=== PATIENT | male | born 1985 | race Caucasian/White ===

== ENCOUNTER → 2019-02-24 | Day surgery (SDC) | payer OTHER ==
[~2019-02-24] MED LIST: TRAMADOL 50 MG50 MG PO; ZOFRAN ODT4 MG PO
--- NOTE | 2019-02-26 14:07 | PATH ---
[facility] [address] [place] [address] PATHOLOGY RPT PROCEDURE Name: HERB GONSALEZ Room: [facility]#: [id number] Admission: 02/24/19 Date of : 81 Discharge: Report #: [id number] Path Case #: [id number] [facility] Accession Number: [id number] . 01 Material submitted: . PART A: shoulder - LEFT SHOULDER MASS. Modifiers: left PART B: jaw - SKIN LESION LEFT JAW. Modifiers: left . 01 Clinical history: . Lipoma of torso, skin lesion face . 02 Diagnosis: A. Left shoulder mass: - Lipoma. . B. Skin lesion left jaw: - Intradermal nevus with congenital features. (RINA:pit; 02/26/2019) QTP 02/26/2019 1050 Local . 02 Electronically signed: . Apollo Man MD, Pathologist NPI- [id number] . 01 Gross description: . A. The specimen is received in formalin, labeled "Herb Gonsalez, left shoulder mass" and consists of a partially encapsulated segment of yellow orange lobulated tissue measuring 4.9 x 4.8 x 1.7 cm. Sectioning reveals homogeneous yellow cut surfaces. El Teacher sections are submitted in A1-A2. . B. The specimen is received in formalin, labeled "Herb Gonsalez, skin lesion left jaw" and consists of an ovoid segment of skin measuring 0.7 x 0.5 x 0.4 cm which displays a slightly raised pink-seo lesion measuring 0.3 x 0.3 cm. It is inked, trisected, and entirely submitted in B1. (SDY; 02/25/2019) SYU/SYU 02/25/2019 1117 Local . 02 Pathologist provided ICD-10: D17.79, D22.39 . 02 CPT . 329518, 394504 Specimen Comment: A courtesy copy of this report has been sent to [phone] Specimen Comment: Report sent to Performed at: [address] [facility] [address], [place] [id number] [place] [address] PATHOLOGY RPT PROCEDURE Name: HERB GONSALEZ Room: [facility]#: [id number] Admission: 02/24/19 Date of : 81 Discharge: Report #: [id number] Path Case #: [id number] MD Torsten Abbott MD Phone: [phone] Performed at: [address] [facility] [address] [place]aur [id number] MD Apollo Man MD Phone: [phone]
--- NOTE | 2019-03-02 11:24 | OP ---
[address] [address] OPERATIVE REPORT Name: SHIELAJULIO C Room: [facility]#: [id number] Admission: 02/24/19 Attend Phys: Deejay Larson DO Discharge: Date of : 81 Report #: [id number] THIS REPORT FOR: //name// CC: Deejay Larson DO [facility] physician/PCP MD PRIMARY CARE DICTATED BY: Carmencita Chan DO DATE OF SERVICE: 02/24/2019 Carmencita Chan DO dictating for Deejay Larson DO. PREOPERATIVE DIAGNOSES: Left upper back mass and skin lesion of the left jaw. POSTOPERATIVE DIAGNOSES: Left upper back mass and skin lesion of the left jaw. PRIMARY SURGEON: Deejay Larson DO BEE ROBBER: Carmencita Chan DO, PGY2 SECOND FILAMENT SHAPER: Sherwin Murdock DO, PGY1 PROCEDURE PERFORMED: Excision of left upper back mass with layered closure and excision of skin lesion, left mandible. ANESTHESIA: General. ESTIMATED BLOOD LOSS: 20 mL. FINDINGS: Left upper back mass consistent with lipoma measured approximately 6 x 5.5 x 1.5 cm. Small skin lesion, left mandible 0.5 x 0.5 x 0.5 cm. ESTIMATED BLOOD LOSS: None. INDICATION FOR PROCEDURE: The patient is a pleasant 33-year-old gentleman that presented to our office for evaluation regarding left upper back mass. He had been seen in our office nearly 7 months prior with the same complaint and was scheduled for surgery, but canceled. He reported some mild increase in size of the left upper back mass. He also pointed out a small skin lesion on his left jaw that he wished to have excised. The procedure, risks, benefits, possible complications to include bleeding, infection, pain or numbness at the incision site wound complications, possible recurrence, anesthesia risks, and other complications associated with surgery were discussed with the patient in detail. He voiced complete understanding and wished [place] [address] OPERATIVE REPORT Name: SHIELAJULIO C Room: [facility]#: [id number] Admission: 02/24/19 Attend Phys: Deejay Larson, DO Discharge: Date of : 81 Report #: [id number] DESCRIPTION OF PROCEDURE: Informed consent was obtained. The patient was taken to the operating room and placed supine on the operating room table. General anesthesia was induced without difficulty. Preoperative antibiotics were given. SCDs were placed on bilateral lower extremities. The patient was then placed in the right lateral decubitus position with care given to pad all of the pressure points and axillary roll was placed. Left upper back was prepped and draped in standard sterile fashion. Timeout was performed to ensure correct patient and procedure. A 4 cm horizontal incision was made overlying the mass using a #10 blade scalpel. Incision was carried down through subcutaneous tissue using electrocautery until we reached what appeared to be a lipoma. Combination of blunt dissection and electrocautery was used to completely excise the mass, did appear to have several fingers projecting out from it. These were excised in their entirety. The mass was passed off for permanent specimen. It measured approximately 6 x 5.5 x 1.5 cm. Wound was inspected to ensure hemostasis. Incision was then closed in a layered fashion. Subcutaneous tissues were closed using 3-0 Vicryl suture in a simple interrupted and inverted fashion. Skin was closed using 4-0 Monocryl suture in a running subcuticular fashion. Sterile dressing was applied using Mastisol, Steri-Strips, and a Tegaderm. The drapes were removed. The patient was then returned to the supine position. A small skin lesion on the left mandibular region was then prepped and draped in the standard sterile fashion. The skin lesion was grasped with an Adson and #15 blade scalpel was used to make a small elliptical incision around the lesion. A #15 blade scalpel was used to completely excise the small skin lesion measured approximately 0.5 x 0.5 x 0.5 cm. Electrocautery was used for hemostasis. Incision was then closed using 5-0 Monocryl suture in a running subcuticular fashion. Skin was cleansed and dried. Dermabond was applied over the incision. The patient tolerated the procedure very well. He was allowed to awaken in the operating room and was transferred to the PACU in stable condition. <ELECTRONICALLY SIGNED> By: Deejay Larson DO 03/02/19 1124 1138 1222Alon Larson DO /nt
== END | disposition home or self-care (01) ==
LOC: M.SUR 02-17 08:00
DX: D17.22 Benign lipomatous neoplasm of skin and subcutaneous tissue of left arm (principal); D23.39 Other benign neoplasm of skin of other parts of face; G43.909 Migraine, unspecified, not intractable, without status migrainosus; Z98.890 Other specified postprocedural states; Z79.899 Other long term (current) drug therapy; Z88.0 Allergy status to penicillin